=== PATIENT | male | born 1975 | race Caucasian/White ===

== ENCOUNTER → 2020-11-11 10:23 | Outpatient (BNVA) | payer OTHER, SELFPAY | PROVIDERS: PCP Nurse Practitioner; Visit Provider Specialist | DX: M25.561 Pain in right knee (principal) | CPT/HCPCS: 73560; 73565 ==

== ENCOUNTER 2020-11-11 11:49 | Outpatient (CLI) | payer OTHER, SELFPAY | END 2020-11-11 11:50 | disposition home or self-care (01) | LOC: SPT 11:50 | PROVIDERS: PCP Nurse Practitioner; Visit Provider Specialist | DX: Z46.89 Encounter for fitting and adjustment of other specified devices (principal); S83.011D Lateral subluxation of right patella, subsequent encounter; X58.XXXD Exposure to other specified factors, subsequent encounter | CPT/HCPCS: 97760; L1812 ==

== ENCOUNTER 2020-11-29 13:58 | Outpatient (CLI) | payer OTHER, SELFPAY ==
--- NOTE | 2020-11-29 14:11 | MR_ITS ---
WS: [id number] MRI RIGHT KNEE NONCONTRAST TECHNIQUE: Axial PD, coronal PD fat sat, coronal PD, sagittal PD, and sagittal PD fat-sat images obta ined. CLINICAL INFORMATION: UNSPECIFIED SUBLUXATION OF RIGHT KNEE COMPARISON: None. FINDINGS: Distal quadriceps and patella tendons are intact. Hypertrophic patella. Normal ACL and PCL. No acute appearing meniscal tears. Normal medial and lateral meniscus. Normal bone marrow signal in the femoral condyles and tibial plateau. Normal medial and lateral colla teral ligaments. Lobulated elongated thin popliteal cyst measuring 1.2 x 1.2 x 5.2 cm AP by transvers e by craniocaudal. Mild chondromalacia patella. No subchondral edema. Normal medial and lateral patellar retinaculum. Sm all amount of prepatellar and infrapatellar patellar soft tissue edema. MR/MR knee RT wo con* [id number] IMPRESSION: 1. Normal bone marrow signal. No acute fractures. 2. Normal ACL and PCL. 3. Medial and lateral meniscus are normal in appearance. No acute appearing me niscal tears. 4. Mild chondromalacia patella. No subchondral edema. Elongated lobulated popliteal cyst measuring 1.2 x 1.2 x 5.2 cm AP by transvers e by craniocaudal. 5. No other significant findings. Outbridge grading: grade II: blister-like swelling/fraying of articular cartila ge extending to surface
== END 2020-11-29 13:59 | disposition home or self-care (01) ==
LOC: RADWPI 14:03
PROVIDERS: PCP Nurse Practitioner; Visit Provider Specialist
DX: S83.001A Unspecified subluxation of right patella, initial encounter (principal); X58.XXXA Exposure to other specified factors, initial encounter; M22.41 Chondromalacia patellae, right knee; M71.21 Synovial cyst of popliteal space [Baker], right knee
CPT/HCPCS: 73721

== ENCOUNTER 2020-12-16 20:55 | Emergency (ER) | payer OTHER, SELFPAY ==
[2020-12-16 21:37] VITALS: BP 136/102; PULSE 96; RESP 18; TEMP 36.2; O2SAT 100; BMI 25.0
[2020-12-16 21:42] VITALS: PULSE 68
[2020-12-16] MEDS: tetanus-dipt-pertussis 0.5 mL SDV IM (22:04)
--- NOTE | 2020-12-16 22:06 | W.ED.EXTPRO ---
HPI - Extremity Problem General: Chief complaint: Extremity Injury, Upper Stated complaint: Left finger lac Time Seen by Provider: 12/16/20 21:56 History of Present Illness: HPI Narrative: Patient comes in today with complaints of injury to the left index finger. Patient was attempting to remove a tight strap with a steak knife and slipped cutting his radial side of his left index finger. Patient appears well. Patient appears no acute distress. Review of Systems General: Reports: 10 or more systems reviewed and unremarkable except in HPI and below Skin/Breast: Reports: other (Laceration to the radial side of the left index finger.) [facility] ED PFSH: Medical History Generalized anxiety disorder Post-traumatic stress disorder, chronic Social History Smoking and tobacco status: never smoked Second hand smoke exposure: No Alcohol intake: current Alcohol intake frequency: few times a week Alcohol type: beer Caregiver/support person: Yes Lives independently: Yes Household members: spouse Marital status: service: No Current occupational status: employed History of recent travel: No Current gender identity: Male Special zeeshan needs: No Agree to transfusion: Yes Physical Exam Const: COMMON NORMALS: no acute distress and patient oriented x3 GENERAL APPEARANCE: cooperative HENMT: COMMON NORMALS: normocephalic and Normal external nose present HEAD & SCALP: normal to inspection and normocephalic NOSE: Normal external nose present Eye: GENERAL EYE: appearance normal, both eyes and all related structures Neck/C-Spine: COMMON NORMALS: full ROM Chest: COMMONS NORMALS: normal inspection of the chest Resp: COMMON NORMALS: normal respiratory effort EFFORT & INSPECTION: Yes able to speak in complete sentences Cardio: COMMON NORMALS: regular rate and regular rhythm RATE: regular rate RHYTHM: regular rhythm GI: COMMON NORMALS: non-tender Extremity: COMMON NORMALS: normal to inspection Neuro: COMMON NORMALS: patient oriented x3 and moves all extremities Psych: COMMON NORMALS: mental status grossly normal and cooperative Skin: NARRATIVE SKIN EXAM: Patient has a 1 cm laceration to the radial side of his left index finger. It is well approximated without any significant gaping or bleeding at this time. Patient is able to flex and extend finger without difficulty. Wound remains intact with movement. Procedures Laceration Laceration 1: Site: hand Side (If applicable): left Size (cm): 1 Description: linear Depth: simple, single layer Skin layer closed with: other (Skin adhesive) Course Vital Signs: Vital signs: Vital Signs Temperature 97.1 F L 12/16/20 21:37 Pulse Rate 68 12/16/20 21:42 Respiratory Rate 16 12/16/20 22:20 Blood Pressure 136/102 12/16/20 21:37 Pulse Oximetry 100 12/16/20 21:37 MDM - Extremity (Nontraumatic) MDM Narrative: Medical decision making narrative: 45-year-old male patient comes in for injury to the left index finger. Patient has a 1 cm superficial laceration to the left radial side of his index finger. Patient has good range of motion of the finger without difficulty. Wound stayed approximated without any gaping with movement of the finger. Distant cap refill was intact and sensation was intact. Differential diagnosis includes but not limited to need for toe prophylaxis tetanus, laceration finger, tendon injury. No sign of tendon injury was noted. Wound was very superficial. We closed the wound and kept it well approximated with skin adhesive. Patient was then splinted to the finger with bulky dressing. Patient was recommended to keep the wound clean and dry and follow-up with primary care as needed. Patient was also placed on prophylaxis Keflex for infection. Discharge Plan Discharge Patient Disposition: Home Clinical Impression: Finger laceration Qualifiers: Encounter type: initial encounter Finger: index finger Damage to nail status: without damage Foreign body presence: without foreign body Laterality: left Qualified Code(s): S61.211A - Laceration without foreign body of left index finger without damage to nail, initial encounter Condition: Stable Prescriptions: New cephalexin 500 mg capsule 500 mg PO BID 7 Days Qty: 14 RF: 0 No Action amoxicillin-pot clavulanate [Augmentin] 875-125 mg tablet 1 tab PO BID 10 Days Qty: 20 RF: 0 (DME) Hinged knee brace See Rx Instructions .ROUTE .MEDSUPPLY Qty: 1 RF: 0 Complete Multivitamin Tablet 1 tab PO QDAY RF: 0 lycopene 10 mg capsule 10 mg PO QDAY RF: 0 clonazepam 0.5 mg tablet 0.5 mg PO QDAY PRN (Reason: anxiety) Qty: 30 RF: 0 escitalopram oxalate [Lexapro] 10 mg tablet 10 mg PO DAILY Qty: 30 RF: 1 Discharge Orders: Discharge ED (Routine); Ordered 12/16/20 Ordered By: Ollie Marcum Referrals: Stefania Alonzo FNP-C [Primary Care Provider] - Discharge Diet: Usual diet Discharge Activity: Increase activity as tolerated Patient Instructions: Skin Adhesive Care (ED), Opioid Safety Activity Restrictions/Additional Instructions: Keep wound clean and dry. Keep wound covered to protect from dirt and soiling. Monitor site for redness and swelling. Monitor for fever. Follow-up with primary care as needed. Return to the ER for new concerns. 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
[2020-12-16] MEDS: cephALEXin 500 mg Capsule PO (22:16)
[2020-12-16 22:20] VITALS: RESP 16
== END 2020-12-16 22:21 | disposition home or self-care (01) ==
PROVIDERS: Emergency Provider Nurse Practitioner Family; PCP Nurse Practitioner
DX: S61.211A Laceration without foreign body of left index finger without damage to nail, initial encounter (principal); W26.0XXA Contact with knife, initial encounter; Z23 Encounter for immunization
CPT/HCPCS: 12001; 90715; 99283

== ENCOUNTER → 2022-07-20 11:35 | Outpatient (BNVA) | payer OTHER, SELFPAY | PROVIDERS: PCP Nurse Practitioner; Visit Provider Nurse Practitioner | DX: R00.0 Tachycardia, unspecified (principal) | CPT/HCPCS: 80053; 80061; 84443 ==

== ENCOUNTER 2022-12-06 09:59 | Outpatient (CLI) | payer OTHER, SELFPAY ==
--- NOTE | 2022-12-06 10:15 | XR_ITS ---
WS: [id number] EXAMINATION: XR cervical spine 3V* [id number] Cervical spine 3 views REASON FOR EXAM: NECK PAIN COMPARISON: None available. FINDINGS: There is no sign of acute fracture or subluxation. Vertebral body heights and intervertebral disc sp aces are maintained. The cervical bony alignment and osseous densities appear normal. There is sonu nal osteophytes noted at C6-7. There is no prevertebral soft tissue change. XR/XR cervical spine 3V* [id number] IMPRESSION: No acute osseous abnormality.
--- NOTE | 2022-12-06 10:15 | XR_ITS ---
WS: [id number] EXAMINATION: XR lumbar spine 2-3V* [id number] L-SPINE : 3 views REASON FOR EXAM: LOW BACK PAIN COMPARISON: None available. ORDER DATE: 12/06/2022 10:45 AM FINDINGS: The lumbar vertebral bodies and the disc spaces are normal in width. In the lumbar vertebra, there i s no evidence of compression deformities or spondylolisthesis. XR/XR lumbar spine 2-3V* [id number] IMPRESSION: UNREMARKABLE LUMBAR SPINE STUDY
== END 2022-12-06 10:00 | disposition home or self-care (01) ==
LOC: RAD 10:04
PROVIDERS: PCP Nurse Practitioner; Visit Provider Family Medicine
DX: M54.50 Low back pain, unspecified (principal); M54.2 Cervicalgia
CPT/HCPCS: 72040; 72100

== ENCOUNTER 2024-05-05 10:56 | Outpatient (CLI) | payer OTHER, SELFPAY ==
--- NOTE | 2024-05-05 11:07 | XR_ITS ---
WS: [id number] KNEE RIGHT TECHNIQUE: 2 views of the right knee CLINICAL INFORMATION: R KNEE PAIN FINDINGS: Normal anatomic alignment. No acute fractures. Mild tricompartmental arthritis worse in the medial sammie int compartment. Normal patella. No significant joint effusion. XR/XR knee RT 1-2V [id number] IMPRESSION: Mild tricompartment arthritis. No acute findings.. Kellgren-Kevin Classification: grade 2 (minimal): definite osteophytes and p ossible joint space narrowing
== END 2024-05-05 10:57 | disposition home or self-care (01) ==
PROVIDERS: PCP Nurse Practitioner; Visit Provider Family Medicine
DX: Z02.71 Encounter for disability determination (principal); M25.561 Pain in right knee
CPT/HCPCS: 73560

== ENCOUNTER → 2024-05-16 14:07 | Outpatient (BNVA) | payer BC, SELFPAY | PROVIDERS: PCP Nurse Practitioner; Visit Provider Registered Nurse Neonatal Intensive Care | DX: S92.331A Displaced fracture of third metatarsal bone, right foot, initial encounter for closed fracture (principal); S92.341A Displaced fracture of fourth metatarsal bone, right foot, initial encounter for closed fracture; S92.324A Nondisplaced fracture of second metatarsal bone, right foot, initial encounter for closed fracture; W19.XXXA Unspecified fall, initial encounter; M77.9 Enthesopathy, unspecified; M77.8 Other enthesopathies, not elsewhere classified | CPT/HCPCS: 73080; 73630 ==

== ENCOUNTER → 2024-06-05 15:36 | Outpatient (BNVA) | payer BC, SELFPAY | PROVIDERS: PCP Nurse Practitioner; Visit Provider Podiatrist Foot & Ankle Surgery | DX: S92.341A Displaced fracture of fourth metatarsal bone, right foot, initial encounter for closed fracture (principal); S92.331A Displaced fracture of third metatarsal bone, right foot, initial encounter for closed fracture; S92.321A Displaced fracture of second metatarsal bone, right foot, initial encounter for closed fracture; X58.XXXA Exposure to other specified factors, initial encounter | CPT/HCPCS: 73630 ==

== ENCOUNTER → 2024-06-25 11:42 | Outpatient (BNVA) | payer BC, SELFPAY | PROVIDERS: PCP Nurse Practitioner; Visit Provider Podiatrist Foot & Ankle Surgery | DX: S92.341A Displaced fracture of fourth metatarsal bone, right foot, initial encounter for closed fracture (principal); S92.331A Displaced fracture of third metatarsal bone, right foot, initial encounter for closed fracture; S92.321A Displaced fracture of second metatarsal bone, right foot, initial encounter for closed fracture; X58.XXXA Exposure to other specified factors, initial encounter | CPT/HCPCS: 73630 ==

== ENCOUNTER → 2024-08-12 07:32 | Outpatient (BNVA) | payer BC, MEDICAID, SELFPAY | PROVIDERS: PCP Nurse Practitioner; Visit Provider Podiatrist Foot & Ankle Surgery | DX: M79.671 Pain in right foot (principal); S92.321A Displaced fracture of second metatarsal bone, right foot, initial encounter for closed fracture; S92.331A Displaced fracture of third metatarsal bone, right foot, initial encounter for closed fracture; S92.341A Displaced fracture of fourth metatarsal bone, right foot, initial encounter for closed fracture; W17.89XA Other fall from one level to another, initial encounter | CPT/HCPCS: 73630 ==

== ENCOUNTER → 2024-10-22 10:45 | Outpatient (BNVA) | payer BC, SELFPAY | PROVIDERS: PCP Nurse Practitioner; Visit Provider Nurse Practitioner | DX: I10 Essential (primary) hypertension (principal); R00.0 Tachycardia, unspecified; Z12.5 Encounter for screening for malignant neoplasm of prostate | CPT/HCPCS: 80053; 80061; 84443; 85025; G0103 ==

== ENCOUNTER → 2025-04-28 16:37 | Outpatient (BNVA) | payer BC, MEDICAID, SELFPAY | PROVIDERS: PCP Nurse Practitioner; Visit Provider Nurse Practitioner | DX: R74.01 Elevation of levels of liver transaminase levels (principal); I10 Essential (primary) hypertension | CPT/HCPCS: 80053; 86705; 86706; 86709; 86803; 87340 ==